=== PATIENT | male | born 1950 | race Caucasian/White ===

== ENCOUNTER 2017-03-21 23:10 | Emergency (ER) | payer SELFPAY ==
[2017-03-22 00:44] VITALS: BP 156/80; PULSE 86; TEMP 97.9; BMI 27.9
--- NOTE | 2017-03-22 00:48 | PDOC ---
History of Present Illness - General History Source: Patient, Family Exam Limitations: No Limitations - History of Present Illness Initial Comments: 03/22/17 00:58 The patient is a 66 year old Latvian-speaking male, with a significant past medical history of hypertension, who presents to the emergency department with, one episode of elevated blood pressure. As per patient's daughter, the patient had an at home systolic blood pressure reading within the 200s. The patient reports to be asymptomatic. He denies any recent fevers, chills, headache or dizziness. He denies any recent nausea, vomit, diarrhea or constipation. He denies any recent chest pain or shortness of breath. He denies any recent dysuria, frequency, urgency or hematuria. Allergies: NKA Past surgical history: None reported. Social History: Nonsmoker. Denies EtOH use and recreational drug use. <Renzo Andres - Last Filed: 03/22/17 00:58> <Raj Davenport - Last Filed: 03/22/17 01:43> - General Chief Complaint: Blood Pressure Problem Stated Complaint: BLOOD PRESSURE Time Seen by Provider: 03/22/17 00:47 Past History <Renzo Andres - Last Filed: 03/22/17 00:58> - Past Medical History COPD: No HTN: Yes Hypercholesterolemia: Yes - Surgical History Abdominal Surgery: No Appendectomy: No Cardiac Surgery: No Cholecystectomy: No Gastric Stapling: No GI Surgery: No Lung Surgery: No Neurologic Surgery: No - Immunization History Immunization Up to Date: Yes - Suicide/Smoking/Psychosocial Hx Smoking History: Never smoked Have you smoked in the past 12 months: No Information on smoking cessation initiated: No Hx Alcohol Use: No Drug/Substance Use Hx: No Substance Use Type: None <Raj Davenport - Last Filed: 03/22/17 01:43> - Past Medical History Home Medications: Ambulatory Orders Amlodipine Besylate 10 mg PO DAILY 03/22/17 Lisinopril 20 mg PO DAILY 03/22/17 Metoprolol Tartrate 50 mg PO DAILY 03/22/17 Rosuvastatin [Crestor -] 20 mg PO DAILY 03/22/17 *Physical Exam - Vital Signs Last Vital Signs Temp Pulse Resp BP Pulse Ox 97.9 F 86 18 156/80 97 03/22/17 00:34 03/22/17 00:34 03/22/17 00:34 03/22/17 00:34 03/22/17 00:34 <DmitryeRnzo - Last Filed: 03/22/17 00:58> - Vital Signs Last Vital Signs Temp Pulse Resp BP Pulse Ox 97.9 F 86 18 156/80 97 03/22/17 00:34 03/22/17 00:34 03/22/17 00:34 03/22/17 00:34 03/22/17 00:34 - Physical Exam Comments: 03/22/17 01:42 REVIEW OF SYSTEMS CONSTITUTIONAL: No fever, no chills, no fatigue EYES: No visual changes ENT: No ear pain, no sore throat CARDIOVASCULAR: No chest pain, no palpitations RESPIRATORY: No cough, no SOB GI: No abdominal pain, no nausea, no vomiting, no constipation, no diarrhea GENITOURINARY: No dysuria, no frequency, no hematuria MUSKULOSKELETAL: No backpain, no joint pain, no myalgias SKIN: No rash NEURO: No headache EXAMINATION CONSTITUTIONAL: Well-appearing; well-nourished; in no apparent distress HEAD: Normocephalic; atraumatic EYES: PERRL; EOM intact ENMT: External appears normal; normal oropharynx NECK: Supple; non-tender; no cervical lymphadenopathy CARD: Normal S1, S2; no murmurs, rubs, or gallops RESP: Normal chest excursion with respiration; breath sounds clear and equal bilaterally; no wheezes, rhonchi, or rales ABD: Soft, non-distended; non-tender; no palpable organomegaly, no palpable hernias EXT: Normal ROM in all four extremities; non-tender to palpation; distal pulses intact SKIN: Warm, dry, no rash NEURO: No focal neurological deficiencies. <Raj Davenport - Last Filed: 03/22/17 01:43> Medical Decision Making - Medical Decision Making 03/22/17 01:42 Patient is well-appearing, asymptomatic 66-year-old male who presented for elevated blood pressure measured at home. In the ED, patient's blood pressure is borderline normal or minimally elevated on 2 consecutive measurements without intervention. Patient never had symptoms upon initial evaluation of his blood pressure and does not report any on the review of system. No acute issues are present. I advised the patient to follow-up with primary care for adjustment of his antihypertensive regimen. Patient and his daughter expressed understanding. <Raj Davenport - Last Filed: 03/22/17 01:43> *DC/Admit/Observation/Transfer - Attestations Scribe Attestion: 03/22/17 00:59 Documentation prepared by Renzo Andres, acting as medical claims processor for Raj Davenport MD. <Renzo Andres - Last Filed: 03/22/17 00:58> - Attestations Physician Attestion: 03/22/17 01:42 The documentation was prepared by the scribe under my direct supervision. I have reviewed the documentation which correctly represents the findings, medical decision-making and critical action taken by me. <Raj Davenport - Last Filed: 03/22/17 01:43> Diagnosis at time of Disposition: Hypertension Qualifiers: Hypertension type: essential hypertension Qualified Code(s): I10 - Essential ( primary) hypertension - Discharge Dispostion Disposition: HOME Condition at time of disposition: Stable - Referrals Referrals: pmd, as needed [Other] - Patient Instructions Printed Discharge Instructions: DI for High Blood Pressure Print Language: CHINESE
== END 2017-03-22 01:00 | disposition home or self-care (01) ==
LOC: JER 23:10
DX: I10 Essential (primary) hypertension (principal); E78.00 Pure hypercholesterolemia, unspecified
CPT/HCPCS: 99281-25

== ENCOUNTER 2018-10-12 13:37 | Emergency (ER) | payer SELFPAY ==
[2018-10-12 13:44] VITALS: BP 147/81; PULSE 95; TEMP 97.5; BMI 27.4
--- NOTE | 2018-10-12 14:05 | PDOC ---
History of Present Illness - General Chief Complaint: RX Refill Stated Complaint: HYPERTENSION Time Seen by Provider: 10/12/18 13:48 - History of Present Illness Initial Comments: 10/12/18 14:00 CHIEF COMPLAINT: medication refill HISTORY OF PRESENT ILLNESS: 68 yo M with hx of HTN and HLD presents to fast track for medication refill. Patient states he has been taking these medications in the past and just went to [place] country () [place] a year and now is back and awaiting medicaid approval. Patient denies any current symptoms. No recent travel or sick contacts. PAST MEDICAL HISTORY: Denies past medical history FAMILY HISTORY: Denies SOCIAL HISTORY: Denies tobacco, alcohol, illicit drug use. SURGICAL HISTORY: Denies ALLERGIES: No known drug allergies REVIEW OF SYSTEMS General/Constitutional: Denies fever or chills. Denies weakness, weight change. HEENT: Denies change in vision. Denies ear pain or discharge. Denies sore throat. Cardiovascular: Denies chest pain or shortness of breath. Respiratory: Denies cough, wheezing, or hemoptysis. Gastrointestinal: Denies nausea, vomiting, diarrhea or constipation. Denies rectal bleeding. Genitourinary: Denies dysuria, frequency, or change in urination. Musculoskeletal: Denies joint or muscle swelling or pain. Denies neck or back pain. Skin and breasts: Denies rash or easy bruising. Neurologic: Denies headache, vertigo, loss of consciousness, or loss of sensation. x allergy. PHYSICAL EXAM General Appearance: Well-appearing, appropriately dressed. No apparent distress , no intoxication. HEENT: EOMI, PERRLA, normal ENT inspection, normal voice, TMs normal, pharynx normal. No conjunctival pallor. No photophobia, scleral icterus. Neck: Supple. Trachea midline. No tenderness, rigidity, carotid bruit, stridor , lymphadenopathy, or thyromegaly. Respiratory/Chest: Lungs CTAB. No shortness of breath, chest tenderness, respiratory distress, accessory muscle use. No crackles, rales, rhonchi, stridor , wheezing, dullness Cardiovascular: RRR. S1, S2. No JVD, murmur, bradycardia, tachycardia. Vascular Pulses: Dorsalis-Pedis (R): 2+, Dorsalis-Pedis (L): 2+ Gastrointestinal/Abdominal: Normal bowel sounds. Abdomen soft, non-distended. No tenderness or rebound tenderness. No organomegaly, pulsatile mass, guarding , hernia, hepatomegaly, splenomegaly. Lymphatic: No adenopathy, tenderness. Musculoskeletal/Extremities: Normal inspection. FROM of all extremities, normal capillary refill. Pelvis Stable. No CVA tenderness. No tenderness to extremities, pedal edema, swelling, erythema or deformity. Integumentary: Appropriate color, dry, warm. No cyanosis, erythema, jaundice or rash Neurologic: instant print operator II-XII intact. Fully oriented, alert. Appropriate mood/affect. Motor strength 5/5. No appreciable EOM palsy, facial droop or sensory deficit. Past History - Past Medical History Allergies/Adverse Reactions: Allergies Allergy/AdvReac Type Severity Reaction Status Date / Time No Known Allergies Allergy Verified 10/12/18 13:41 Home Medications: Ambulatory Orders Amlodipine Besylate 10 mg PO DAILY 03/22/17 Lisinopril 20 mg PO DAILY 03/22/17 Rosuvastatin [Crestor -] 20 mg PO DAILY 03/22/17 Amlodipine Besylate 10 mg PO DAILY #14 tablet 10/12/18 Aspirin 81 mg PO DAILY #14 tab.chew 10/12/18 Atorvastatin Ca [Lipitor] 40 mg PO HS #14 tablet 10/12/18 Docusate Sodium [Colace] 100 mg PO DAILY #14 capsule 10/12/18 Lisinopril 10 mg PO DAILY #14 tablet 10/12/18 Metoprolol Tartrate 50 mg PO DAILY #14 tablet 10/12/18 COPD: No HTN: Yes Hypercholesterolemia: Yes - Surgical History Abdominal Surgery: No Appendectomy: No Cardiac Surgery: No Cholecystectomy: No Gastric Stapling: No GI Surgery: No Lung Surgery: No Neurologic Surgery: No - Immunization History Immunization Up to Date: Yes - Suicide/Smoking/Psychosocial Hx Smoking History: Former smoker Have you smoked in the past 12 months: No If you are a former smoker, when did you quit?: 2016 Information on smoking cessation initiated: No Hx Alcohol Use: No Drug/Substance Use Hx: No Substance Use Type: None *Physical Exam - Vital Signs Last Vital Signs Temp Pulse Resp BP Pulse Ox 97.5 F L 95 H 16 147/81 98 10/12/18 13:41 10/12/18 13:41 10/12/18 13:41 10/12/18 13:41 10/12/18 13:41 *DC/Admit/Observation/Transfer Diagnosis at time of Disposition: Medication refill - Discharge Dispostion Disposition: HOME Condition at time of disposition: Stable - Prescriptions Prescriptions: Amlodipine Besylate 10 mg PO DAILY #14 tablet Aspirin 81 mg PO DAILY #14 tab.chew Atorvastatin Ca [Lipitor] 40 mg PO HS #14 tablet Docusate Sodium [Colace] 100 mg PO DAILY #14 capsule Lisinopril 10 mg PO DAILY #14 tablet Metoprolol Tartrate 50 mg PO DAILY #14 tablet - Referrals Referrals: [facility] [Outside] Anastasia Vick MD [Staff Physician] - Malina Salmon MD [Staff Physician] - - Patient Instructions Printed Discharge Instructions: How to Refill a Prescription Additional Instructions: As discussed, please go to [facility] to apply for emergency insurance. Establish care with a primary care doctor as soon as possible for continued monitoring of your chronic medical conditions. If you develop any shortness of breath, chest pain, swelling to the legs, difficulty breathing, or any new symptoms, please return to the ER. - Post Discharge Activity
== END 2018-10-12 14:30 | disposition home or self-care (01) ==
LOC: JERFT 13:37
DX: Z76.0 Encounter for issue of repeat prescription (principal); I10 Essential (primary) hypertension; E78.5 Hyperlipidemia, unspecified
CPT/HCPCS: 99281-25